=== PATIENT | female | born 1980 | race Caucasian/White ===

== ENCOUNTER 2017-01-26 22:42 | Emergency (ER) | payer BC ==
[~2017-01-26] VITALS: Ht 172.7 cm; Wt 68.0 kg
[~2017-01-26 22:42] MED LIST: ALBUTEROL0.09 MG/A2 INH; BENTYL10 MG PO; CLARITIN10 MG PO; FLEXERIL10 MG PO; MEDROL DOSEPAK4 MG PO; MOTRIN800 MG PO; NKHM; PERCOCET 325 MG1 TA2 PO; PREDNICOT20 MG PO; PRILOSEC20 MG PO; SYMBICORT1 AE1 INH; ZITHROMAX Z PA250 MG PO; ZITHROMAX250 MG PO; ZOFRAN ODT4 MG SL; ZYRTEC10 MG PO
[2017-01-26 22:47] VITALS: BP 128/74
[2017-01-26] MEDS ORDERED: PREDNISONE10 MG PO (22:56)
== END 2017-01-26 23:22 | disposition home or self-care (01) ==
LOC: ED 22:42
DX: L23.7 Allergic contact dermatitis due to plants, except food (principal)

== ENCOUNTER → 2021-06-26 | Outpatient (CLI) | payer BC ==
[~2021-06-26] MED LIST changes: +PREDNISONE10 MG PO
== END | disposition home or self-care (01) ==
LOC: RAD 14:16
PROVIDERS: ATTEND Family Medicine
DX: R06.02 Shortness of breath (principal)

== ENCOUNTER → 2023-11-22 | Outpatient (CLI) | payer BC | END | disposition home or self-care (01) | LOC: RAD 10:49 | PROVIDERS: ATTEND Chiropractor | DX: M50.822 Other cervical disc disorders at C5-C6 level (principal); M47.812 Spondylosis without myelopathy or radiculopathy, cervical region; M48.02 Spinal stenosis, cervical region; M25.78 Osteophyte, vertebrae ==

== ENCOUNTER → 2024-07-20 | Outpatient (CLI) | payer BC ==
[2024-07-20 07:30] LABS: HEMATOCRIT 44.7 % (37.0-47.0); MEAN CELL VOLUME 87.8 fl (81.0-99.0); MEAN CORPUSCULAR HGB 29.5 pg (27.0-31.0); MEAN CORPUSCULAR HGB CONC 33.6 g/dl (33.0-37.0); MEAN PLATELET VOLUME 11.3 fl (9.6-12.3); RED BLOOD COUNT 5.09 10*6/uL (4.10-5.10); RED CELL DISTRI WIDTH 12.2 % (0-14.5); WHITE BLOOD COUNT 7.7 10*3/uL (4.8-10.8)
[2024-07-20 07:53] LABS: ALKALINE PHOSPHATASE 63 U/L (46-116); BUN 14 mg/dl (9-23); CHLORIDE 106 mmol/L (98-107); CHOLESTEROL 162 mg/dL (<200); FREE T4 1.22 ng/dl (0.89-1.76); LDL CHOLESTEROL 94 mg/dL (9-159); POTASSIUM 3.9 mmol/L (3.4-5.1); SGPT/ALT 10 U/L (5-49); TOTAL PROTEIN 7.2 gm/dL (6.0-8.0); TRIGLYCERIDES 67 mg/dl (<150)
[2024-07-20 08:51] LABS: VITAMIN D, 25-HYDROXY 38.1 ng/mL (30-100)
== END | disposition home or self-care (01) ==
LOC: LAB 07:11
PROVIDERS: ATTEND Family Medicine
DX: E78.00 Pure hypercholesterolemia, unspecified (principal); R53.83 Other fatigue; I10 Essential (primary) hypertension; E55.9 Vitamin D deficiency, unspecified